=== PATIENT | male | born 1960 | race African-American/Black ===

== ENCOUNTER 2020-05-01 10:39 | Inpatient (IN) | payer MEDICAID, MEDICARE ==
[2020-05-01] VITALS (39 sets, daily range): BP systolic 133–193; BP diastolic 77–133
[~2020-05-01] VITALS: Ht 157.5 cm; Wt 119.7 kg
[2020-05-01] MEDS ORDERED: ATEN-42 PO (11:23)
[2020-05-01] MEDS ORDERED: ASPI-1497 PO (11:31)
[2020-05-01] MEDS ORDERED: INSU100I28 SQ (11:38)
[2020-05-01] MEDS ORDERED: ALLO100T PO (11:38)
[2020-05-01] MEDS ORDERED: INSU100I26 SQ (11:38)
[2020-05-01] MEDS ORDERED: DOCUSATE SODIUM 100MG CAPSULE PO PRN (11:45)
[2020-05-01] MEDS ORDERED: ACETAMINOPHEN 325MG TABLET PO PRN (11:45)
[2020-05-01] MEDS ORDERED: MAGNESIUM/ALUMINUM HYDROXIDE/SIMETHICONE 30ML UDC PO PRN (11:45)
[2020-05-01] MEDS ORDERED: LISINOPRIL 5MG TABLET PO SCH (11:45)
[2020-05-01] MEDS ORDERED: ONDANSETRON HCL 4MG/2ML INJ IV PRN (11:45)
[2020-05-01] MEDS ORDERED: METOPROLOL TARTRATE 25MG TABLET PO SCH (11:45)
[2020-05-01] MEDS ORDERED: MORPHINE SULFATE 2 MG/ML CPJ (NOT FOR IM USE) IV PRN (11:45)
[2020-05-01] MEDS ORDERED: DEXTROSE 50% WATER 50ML SYRINGE IV PRN (12:00)
[2020-05-01] MEDS ORDERED: NICARDIPINE 40MG/200ML PREMIX 200 ML IV PRN (12:15)
[2020-05-01] MEDS: BLOOD SUGAR DIAGNOSTIC STRIP TEST SCH ×3 (13:02→20:42)
[2020-05-01 13:06] LABS: BASOPHILS % 1.1 % (0.0-2.0); EOSINOPHILS % 1.1 % (0.0-5.0); HEMATOCRIT. 36.2 % (42.0-52.0); HEMOGLOBIN. 12.2 g/dL (14.0-18.0); LYMPHOCYTES % 13.8 % (20.0-50.0); MEAN CORPUSCULAR HEMOGLOBIN 29.5 pg (28.0-32.0); MEAN PLATELET VOLUME 7.9 fl (7.4-10.4); PLATELET 279 x1000/uL (130-400); RED BLOOD CELL COUNT 4.12 mill/uL (4.7-6.1); RED CELL DISTRIBUTION WIDTH 15.2 % (11.6-14.6)
[2020-05-01] MEDS: PANTOPRAZOLE SODIUM 40 MG/VIAL IV SCH (13:08)
[2020-05-01] MEDS: ALLOPURINOL 100 MG TABLET PO SCH ×2 (13:08→13:16)
[2020-05-01] MEDS: FUROSEMIDE 40MG/4ML VIAL IVP SCH (13:08)
[2020-05-01] MEDS: INSULIN LISPRO 100 UNITS/ML SUBCUT SCH ×3 (13:09→20:43)
[2020-05-01 13:16] LABS: CHLORIDE 109 mEq/L (98-107)
[2020-05-01 13:23] LABS: CREATINE KINASE 802 IU/L (39-308)
[2020-05-01] MEDS: NICARDIPINE 50 MG in SODIUM CHLORIDE 0.9% 250 ML IV PRN ×2 (14:10→22:27)
[2020-05-01 16:14] LABS: CLARITY URINE CLEAR (CLEAR); COLOR URINE YELLOW (YELLOW); KETONES URINE NEGATIVE (NEGATIVE); LEUKOCYTE ESTERASE URINE NEGATIVE (NEGATIVE); NITRITE URINE NEGATIVE (NEGATIVE); OCCULT BLOOD URINE 1+ (NEGATIVE); PROTEIN URINE 3+ (NEGATIVE); SPECIFIC GRAVITY URINE 1.015 (1.005-1.030); UROBILINOGEN URINE 0.2 E.U./dL (0.2-1.0)
[2020-05-01] MEDS: CARVEDILOL 12.5MG TABLET PO SCH (20:41)
[2020-05-01] MEDS: ATORVASTATIN CALCIUM 40MG TABLET PO SCH (20:42)
[2020-05-01] MEDS ORDERED: CARVEDILOL 6.25 MG TABLET PO SCH (21:00)
[2020-05-01] MEDS ORDERED: INSULIN GLARGINE UD 100 UNITS/ML SYR SUBCUT SCH (22:00)
[2020-05-01] MEDS: INSULIN GLARGINE UD 100 UNITS/ML SYR SUBCUT SCH (22:18)
[2020-05-02] VITALS (61 sets, daily range): BP systolic 113–183; BP diastolic 15–104
[2020-05-02 05:06] LABS: BASOPHILS % 0.8 % (0.0-2.0); EOSINOPHILS % 3.8 % (0.0-5.0); HEMATOCRIT. 36.8 % (42.0-52.0); HEMOGLOBIN. 12.4 g/dL (14.0-18.0); LYMPHOCYTES % 18.1 % (20.0-50.0); MEAN CORPUSCULAR HEMOGLOBIN 29.3 pg (28.0-32.0); MEAN CORPUSCULAR VOLUME 86.8 fL (80.0-94.0); MEAN PLATELET VOLUME 8.4 fl (7.4-10.4); MONOCYTES % 6.6 % (2.0-8.0); NEUTROPHILS % 70.7 % (40.0-76.0); PLATELET 304 x1000/uL (130-400); RED BLOOD CELL COUNT 4.24 mill/uL (4.7-6.1); RED CELL DISTRIBUTION WIDTH 15.4 % (11.6-14.6)
[2020-05-02 05:15] LABS: CHLORIDE 108 mEq/L (98-107)
[2020-05-02] MEDS: NICARDIPINE 50 MG in SODIUM CHLORIDE 0.9% 250 ML IV PRN (05:18)
[2020-05-02 05:28] LABS: LDL CHOLESTEROL 220 mg/dL (5-100)
[2020-05-02 05:30] LABS: HDL CHOLESTEROL 41 mg/dL (40-59)
[2020-05-02] MEDS: FUROSEMIDE 40MG/4ML VIAL IVP SCH (07:52)
[2020-05-02] MEDS: CARVEDILOL 12.5MG TABLET PO SCH ×2 (07:52→20:54)
[2020-05-02] MEDS: PANTOPRAZOLE SODIUM 40 MG/VIAL IV SCH (07:52)
[2020-05-02] MEDS: CLOPIDOGREL 75MG TABLET PO SCH (07:52)
[2020-05-02] MEDS: POTASSIUM CHLORIDE 20MEQ TABLET SR PO SCH (07:52)
[2020-05-02] MEDS: ALLOPURINOL 100 MG TABLET PO SCH (07:52)
[2020-05-02] MEDS: ASPIRIN 81MG EC TABLET PO SCH (07:52)
[2020-05-02] MEDS: BLOOD SUGAR DIAGNOSTIC STRIP TEST SCH ×3 (08:50→21:24)
[2020-05-02] MEDS: INSULIN LISPRO 100 UNITS/ML SUBCUT SCH ×4 (08:51→20:54)
[2020-05-02] MEDS: INSULIN GLARGINE UD 100 UNITS/ML SYR SUBCUT SCH ×2 (10:56→21:25)
[2020-05-02] MEDS: CLONIDINE 0.1MG TABLET PO PRN ×2 (16:22→22:20)
[2020-05-02] MEDS ORDERED: BLOOD SUGAR DIAGNOSTIC STRIP TEST SCH (18:00)
[2020-05-02] MEDS: ATORVASTATIN CALCIUM 40MG TABLET PO SCH (20:53)
[2020-05-02] MEDS ORDERED: CARVEDILOL 12.5MG TABLET PO NR (22:15)
[2020-05-03] VITALS: BP 171/100
[2020-05-03 00:30] VITALS: BP 161/91
[2020-05-03 04:58] VITALS: BP 182/98
[2020-05-03] MEDS: BLOOD SUGAR DIAGNOSTIC STRIP TEST SCH ×2 (05:51→12:50)
[2020-05-03] MEDS: CLONIDINE 0.1MG TABLET PO PRN (05:59)
[2020-05-03] MEDS: INSULIN LISPRO 100 UNITS/ML SUBCUT SCH ×2 (06:19→12:54)
[2020-05-03 07:54] VITALS: BP 167/82
[2020-05-03] MEDS: POTASSIUM CHLORIDE 20MEQ TABLET SR PO SCH (08:27)
[2020-05-03] MEDS: FUROSEMIDE 40MG/4ML VIAL IVP SCH (08:27)
[2020-05-03] MEDS: PANTOPRAZOLE SODIUM 40 MG/VIAL IV SCH (08:27)
[2020-05-03] MEDS: ASPIRIN 81MG EC TABLET PO SCH (08:28)
[2020-05-03] MEDS: ALLOPURINOL 100 MG TABLET PO SCH (08:28)
[2020-05-03] MEDS: CLOPIDOGREL 75MG TABLET PO SCH (08:28)
[2020-05-03] MEDS ORDERED: CARVEDILOL 12.5MG TABLET PO SCH (09:00)
[2020-05-03] MEDS ORDERED: AMLODIPINE 5MG TABLET PO SCH (09:15)
[2020-05-03 09:30] LABS: BASOPHILS % 0.7 % (0.0-2.0); EOSINOPHILS % 1.7 % (0.0-5.0); HEMATOCRIT. 37.6 % (42.0-52.0); HEMOGLOBIN. 12.6 g/dL (14.0-18.0); LYMPHOCYTES % 14.8 % (20.0-50.0); MEAN CORPUSCULAR HEMOGLOBIN 29.5 pg (28.0-32.0); MEAN CORPUSCULAR VOLUME 87.7 fL (80.0-94.0); MEAN PLATELET VOLUME 8.4 fl (7.4-10.4); MONOCYTES % 7.5 % (2.0-8.0); NEUTROPHILS % 75.3 % (40.0-76.0); PLATELET 287 x1000/uL (130-400); RED BLOOD CELL COUNT 4.28 mill/uL (4.7-6.1); RED CELL DISTRIBUTION WIDTH 15.4 % (11.6-14.6)
[2020-05-03 10:41] VITALS: BP 167/82
[2020-05-03] MEDS: INSULIN GLARGINE UD 100 UNITS/ML SYR SUBCUT SCH (10:53)
[2020-05-03 12:00] VITALS: BP 168/94
[2020-05-04] MEDS ORDERED: AMLODIPINE 10MG TABLET PO SCH (09:00)
[2020-05-04] MEDS ORDERED: FAMOTIDINE 20MG/2ML VIAL IV SCH (09:00)
== END 2020-05-03 16:30 | disposition home health service (06) | DRG 64 ==
LOC: CVICU 10:39 → 8WST 05-03 00:24
PROVIDERS: ADMIT Hospitalist; ATTEND Hospitalist
PROC: 5A09457 Assistance with Respiratory Ventilation, 24-96 Consecutive Hours, Continuous Positive Airway Pressure (ICD-10-PCS; principal; 2020-05-01)
DX: I63.9 Cerebral infarction, unspecified (principal); I21.A1 Myocardial infarction type 2; I50.33 Acute on chronic diastolic (congestive) heart failure; I13.0 Hypertensive heart and chronic kidney disease with heart failure and stage 1 through stage 4 chronic kidney disease, or unspecified chronic kidney disease; I16.1 Hypertensive emergency; M62.82 Rhabdomyolysis; N04.9 Nephrotic syndrome with unspecified morphologic changes; N17.9 Acute kidney failure, unspecified; Z68.42 Body mass index [BMI] 45.0-49.9, adult; E11.22 Type 2 diabetes mellitus with diabetic chronic kidney disease; E11.610 Type 2 diabetes mellitus with diabetic neuropathic arthropathy; E11.65 Type 2 diabetes mellitus with hyperglycemia; D64.9 Anemia, unspecified; E78.5 Hyperlipidemia, unspecified; E87.6 Hypokalemia; G47.33 Obstructive sleep apnea (adult) (pediatric); G83.21 Monoplegia of upper limb affecting right dominant side; I25.10 Atherosclerotic heart disease of native coronary artery without angina pectoris; I27.20 Pulmonary hypertension, unspecified; M10.9 Gout, unspecified; N18.9 Chronic kidney disease, unspecified; E66.01 Morbid (severe) obesity due to excess calories; Z82.49 Family history of ischemic heart disease and other diseases of the circulatory system; Z79.899 Other long term (current) drug therapy
CPT/HCPCS: 36415; 71045; 80048; 80053; 80061; 81003; 82550; 82570; 82962; 83036; 83735; 84100; 84156; 84484; 84550; 85025; 93005; 93306; 94660; 95816; 97116; 97162; 97166; C9113; J1815; J1940; J3490; J7050